=== PATIENT | female | born 1950 | race Caucasian/White ===

== ENCOUNTER → 2017-06-18 | Outpatient (CLI) | payer SELFPAY ==
--- NOTE | 2017-06-18 17:01 | CT ---
HISTORY: Family history, weakness, dyspnea Cardiac calcium scoring. Technique: Multiple axial images of the chest were obtained on a [address] from the aortic arch to the base of the heart with noncontrast prospective gating. AEC was utilized. Findings: A total calcium score of 1 is observed. The score results in low, less than 10%, likelihood of coron jose events given the age and sex matched cohort analysis. There is a small hiatal hernia. An incidental right hepatic lobe hypodensity is noted with Hounsfield units suggesting a benign lesion. Thoracic spondylosis is noted. There are linear basilar opacities representing scar versus subsegmental atelectasis. IMPRESSION: Minimal identifiable calcified atherosclerotic plaque. Reported By:
== END ==
LOC: RAD 14:05
PROVIDERS: ATTEND Internal Medicine Cardiovascular Disease
DX: Z13.6 Encounter for screening for cardiovascular disorders (principal)